=== PATIENT | male | born 1955 | race Caucasian/White ===

== ENCOUNTER 2018-07-22 16:26 | Emergency (ER) | payer MEDICARE ==
[~2018-07-22] VITALS: Ht 193 cm; Wt 98.0 kg
[~2018-07-22 16:26] MED LIST: ADVAIR 500/501 E1; ADVAIR 500/501 E1 INH; SINGU; SINGULAIR10 MG; SPIRIVA -- 3018 MCG; SPIRIVA -- 3018 MCG INH; TENORMIN0.5 MG/ML; TENORMIN25 MG; TENORMIN50 MG PO; XANAX1 MG; XANAX1 MG PO; XOPENEX HF0.045 MG/A; XOPENEX0.31 MG; XOPENEX0.31 MG INH
[2018-07-22] MEDS ORDERED: CEFADROXIL500 M1 PO (17:16)
[2018-07-22] MEDS ORDERED: ANAPROX DS550 MG PO (17:16)
== END 2018-07-22 17:30 | disposition home or self-care (01) ==
LOC: ED 16:26
DX: S71.111A Laceration without foreign body, right thigh, initial encounter (principal); F17.200 Nicotine dependence, unspecified, uncomplicated; Z79.899 Other long term (current) drug therapy; Z91.048 Other nonmedicinal substance allergy status; Z88.1 Allergy status to other antibiotic agents; Z91.041 Radiographic dye allergy status; W20.8XXA Other cause of strike by thrown, projected or falling object, initial encounter; Y93.89 Activity, other specified; Y92.096 Garden or yard of other non-institutional residence as the place of occurrence of the external cause; Y99.8 Other external cause status

== ENCOUNTER 2018-07-23 19:58 | Emergency (ER) | payer MEDICARE ==
[~2018-07-23] VITALS: Ht 187.9 cm; Wt 98.4 kg
[~2018-07-23 19:58] MED LIST changes: +ANAPROX DS550 MG PO; +CEFADROXIL500 M1 PO
== END 2018-07-23 21:49 | disposition home or self-care (01) ==
LOC: ED 19:58
DX: S93.402A Sprain of unspecified ligament of left ankle, initial encounter (principal); S90.32XA Contusion of left foot, initial encounter; M54.2 Cervicalgia; R20.0 Anesthesia of skin; Z79.899 Other long term (current) drug therapy; Z88.1 Allergy status to other antibiotic agents; Z91.040 Latex allergy status; Z88.8 Allergy status to other drugs, medicaments and biological substances; X50.1XXA Overexertion from prolonged static or awkward postures, initial encounter; Y93.89 Activity, other specified; Y92.89 Other specified places as the place of occurrence of the external cause; Y99.8 Other external cause status

== ENCOUNTER → 2018-08-03 | Outpatient (CLI) | payer MEDICARE | END | disposition home or self-care (01) | LOC: MRI 08:57 | DX: M25.872 Other specified joint disorders, left ankle and foot (principal); M25.472 Effusion, left ankle ==

== ENCOUNTER 2019-10-02 13:38 | Emergency (ER) | payer MEDICARE ==
[~2019-10-02] VITALS: Ht 193 cm; Wt 99.8 kg
== END 2019-10-02 15:32 | disposition home or self-care (01) ==
LOC: ED 13:38
DX: M79.605 Pain in left leg (principal); M79.672 Pain in left foot; I25.10 Atherosclerotic heart disease of native coronary artery without angina pectoris; J45.909 Unspecified asthma, uncomplicated; I10 Essential (primary) hypertension; E78.00 Pure hypercholesterolemia, unspecified; Z88.8 Allergy status to other drugs, medicaments and biological substances; Z88.1 Allergy status to other antibiotic agents; Z91.040 Latex allergy status; Z79.899 Other long term (current) drug therapy

== ENCOUNTER 2020-04-06 18:51 | Emergency (ER) | payer OTHER ==
[~2020-04-06] VITALS: Wt 97.5 kg
[2020-04-06] MEDS ORDERED: NAPROSYN500 MG PO (21:14)
== END 2020-04-06 22:10 | disposition home or self-care (01) ==
LOC: ED 18:51
DX: M79.662 Pain in left lower leg (principal); Z88.1 Allergy status to other antibiotic agents; Z88.8 Allergy status to other drugs, medicaments and biological substances; Z91.040 Latex allergy status; Z79.899 Other long term (current) drug therapy

== ENCOUNTER → 2020-04-14 | Outpatient (CLI) | payer OTHER ==
[~2020-04-14] MED LIST changes: +NAPROSYN500 MG PO
== END | disposition home or self-care (01) ==
LOC: COVID19 11:05
PROVIDERS: ATTEND Family Medicine
DX: U07.1 COVID-19 (principal)

== ENCOUNTER → 2020-06-24 | Outpatient (CLI) | payer OTHER ==
[~2020-06-24] MED LIST changes: +SILDENAFIL20 M1 PO; +TENORMIN25 M1 PO; -TENORMIN50 MG PO; +XOPENEX HFA15 GM INH; -XOPENEX0.31 MG INH
== END | disposition home or self-care (01) ==
LOC: CARD 01:36
PROVIDERS: ATTEND Internal Medicine
DX: I51.7 Cardiomegaly (principal); I25.10 Atherosclerotic heart disease of native coronary artery without angina pectoris

== ENCOUNTER 2022-04-27 12:35 | Emergency (ER) | payer MEDICARE | END 2022-04-27 15:46 | disposition home or self-care (01) | LOC: ED 12:35 | DX: S09.90XA Unspecified injury of head, initial encounter (principal); Z88.8 Allergy status to other drugs, medicaments and biological substances; Z91.040 Latex allergy status; Z88.1 Allergy status to other antibiotic agents; Y08.89XA Assault by other specified means, initial encounter; Y93.89 Activity, other specified; Y92.89 Other specified places as the place of occurrence of the external cause; Y99.8 Other external cause status ==